=== PATIENT | female | born 1970 | race African-American/Black ===

== ENCOUNTER 2017-11-13 12:04 | Emergency (ER) | payer OTHER ==
[2017-11-13] MEDS: AMOXICILLIN/CLAV 500 MG TAB PO (15:00)
== END 2017-11-13 15:40 | disposition home or self-care (01) ==
LOC: FTE 12:04
DX: L03.012 Cellulitis of left finger (principal)
CPT/HCPCS: 82962; 99283

== ENCOUNTER 2017-12-29 17:31 | Emergency (ER) | payer OTHER ==
[2017-12-29] MEDS: ONDANSETRON (ODT) 4 MG TAB ODT (18:18)
== END 2017-12-29 18:19 | disposition left against medical advice (07) ==
LOC: E/R 17:31
DX: F10.920 Alcohol use, unspecified with intoxication, uncomplicated (principal)
CPT/HCPCS: 82962; 99282

== ENCOUNTER 2018-02-01 11:51 | Emergency (ER) | payer OTHER ==
[2018-02-01] MEDS: LACTATED RINGER'S 1,000 ML IV (12:12)
[2018-02-01] MEDS: ONDANSETRON 4 MG INJ IV ×2 (12:12→13:10)
[2018-02-01] MEDS: FAMOTIDINE 20 MG INJ IV (12:12)
[2018-02-01 12:18] LABS: ADD MAN DIFF? NO
[2018-02-01 12:20] LABS: BASOPHILS % 0.1 % (0.0-2.0); HEMATOCRIT 34.8 % (37.0-47.0); HEMOGLOBIN 11.5 g/dl (12.0-16.0); LYMPHOCYTES # 1.1 10^3/ul (0.8-2.9); LYMPHOCYTES % 13.4 % (15.0-51.0); MEAN CORPUSCULAR HEMOGLOBIN 28.5 pg (29.0-33.0); MEAN CORPUSCULAR VOLUME 86.4 fl (82.0-101.0); MEAN PLATELET VOLUME 10.5 fl (7.4-10.4); MONOCYTE # 0.4 10^3/ul (0.3-0.9); MONOCYTES % 5.1 % (0.0-11.0); NEUTROPHIL # 6.8 10^3/ul (1.6-7.5); NEUTROPHILS % 80.5 % (39.0-77.0); PLATELET COUNT 179 10^3/UL (140-415); RED BLOOD COUNT 4.03 10^6/ul (4.20-5.40); RED CELL DISTRIBUTION WIDTH 14.8 % (11.5-14.5)
[2018-02-01 12:20] LABS: WHITE BLOOD COUNT 8.5 10^3/ul (4.8-10.8)
[2018-02-01] MEDS: PRENATAL VITAMIN PO (12:38)
[2018-02-01] MEDS: IBUPROFEN 800 MG TAB PO (12:38)
[2018-02-01 12:43] LABS: ALANINE AMINOTRANSFERASE 39 IU/L (13-69); ALBUMIN 4.7 g/dl (3.3-4.9); ALBUMIN/GLOBULIN RATIO 1.42; ALKALINE PHOSPHATASE 73 IU/L (42-121); ANION GAP 33 (8-16); ASPARTATE AMINO TRANSFERASE 70 IU/L (15-46); BILIRUBIN,INDIRECT 0.5 mg/dl (0-1.1); BILIRUBIN,TOTAL 0.5 mg/dl (0.2-1.3); BLOOD UREA NITROGEN 19 mg/dl (7-20); CALCIUM 8.3 mg/dl (8.4-10.2); CARBON DIOXIDE 14 mmol/L (21-31); CHLORIDE 100 mmol/L (97-110); CREATININE 1.13 mg/dl (0.44-1.00); GLUCOSE 89 mg/dl (70-220); LIPASE 223 U/L (23-300); POTASSIUM 4.1 mmol/L (3.5-5.1); SODIUM 143 mmol/L (135-144)
[2018-02-01 13:15] LABS: ADD UMIC YES; UR ASCORBIC ACID NEGATIVE (NEGATIVE); UR BACTERIA FEW /HPF (NONE SEEN); UR BILIRUBIN (Dip) NEGATIVE (NEGATIVE); UR BLOOD (Dip) 1+ mg/dL (NEGATIVE); UR CLARITY CLEAR (CLEAR); UR COLOR YELLOW (YELLOW); UR GLUCOSE (Dip) NEGATIVE (NEGATIVE); UR KETONES (Dip) 2+ mg/dL (NEGATIVE); UR LEUKOCYTE ESTERASE (Dip) NEGATIVE Leu/ul (NEGATIVE); UR NITRITE (Dip) NEGATIVE (NEGATIVE); UR RBC 0 /HPF (0-5); UR SPECIFIC GRAVITY (Dip) 1.012 (1.003-1.030); UR TOTAL PROTEIN (Dip) NEGATIVE (NEGATIVE); UR UROBILINOGEN (Dip) NEGATIVE (NEGATIVE); UR WBC 0 /HPF (0-5)
== END 2018-02-01 13:45 | disposition home or self-care (01) ==
LOC: E/R 11:51
DX: F10.20 Alcohol dependence, uncomplicated (principal); R11.2 Nausea with vomiting, unspecified
CPT/HCPCS: 36415; 80053; 81001; 83690; 85025; 96374; 96375; 96376; 99284-25

== ENCOUNTER 2018-02-18 16:09 | Emergency (ER) | payer OTHER | END 2018-02-18 16:54 | disposition home or self-care (01) | LOC: E/R 16:09 | DX: F10.920 Alcohol use, unspecified with intoxication, uncomplicated (principal); I10 Essential (primary) hypertension | CPT/HCPCS: 99283; Z7502 ==

== ENCOUNTER 2018-03-13 07:45 | Emergency (ER) | payer OTHER ==
[2018-03-13] MEDS: SOD CHLORIDE 0.9% 1,000 ML IV (08:11)
[2018-03-13] MEDS: FAMOTIDINE 20 MG TAB PO (08:12)
[2018-03-13] MEDS: ONDANSETRON 4 MG INJ IV (08:12)
[2018-03-13] MEDS: LIDOCAINE/MYLANTA 40 ML BTL PO (08:12)
[2018-03-13 08:22] LABS: ADD MAN DIFF? NO
[2018-03-13 08:24] LABS: WHITE BLOOD COUNT 3.4 10^3/ul (4.8-10.8)
[2018-03-13 08:24] LABS: ABNORMAL IP MESSAGE 1; BASOPHILS % 1.2 % (0.0-2.0); EOSINOPHILS # 0.1 10^3/ul (0.0-0.5); EOSINOPHILS % 3.6 % (0.0-7.0); HEMATOCRIT 35.3 % (37.0-47.0); HEMOGLOBIN 12.1 g/dl (12.0-16.0); LYMPHOCYTES # 1.9 10^3/ul (0.8-2.9); LYMPHOCYTES % 55.1 % (15.0-51.0); MEAN CORPUSCULAR HEMOGLOBIN 28.5 pg (29.0-33.0); MEAN CORPUSCULAR HGB CONC 34.3 g/dl (32.0-37.0); MEAN CORPUSCULAR VOLUME 83.3 fl (82.0-101.0); MEAN PLATELET VOLUME 10.8 fl (7.4-10.4); MONOCYTE # 0.4 10^3/ul (0.3-0.9); MONOCYTES % 12.2 % (0.0-11.0); NEUTROPHIL # 0.9 10^3/ul (1.6-7.5); NEUTROPHILS % 27.6 % (39.0-77.0); PLATELET COUNT 189 10^3/UL (140-415); RED BLOOD COUNT 4.24 10^6/ul (4.20-5.40)
[2018-03-13 08:26] LABS: POSITIVE DIFF @See below
[2018-03-13 08:45] LABS: ALANINE AMINOTRANSFERASE 50 IU/L (13-69); ALBUMIN 5.1 g/dl (3.3-4.9); ALBUMIN/GLOBULIN RATIO 1.64; ALKALINE PHOSPHATASE 77 IU/L (42-121); ANION GAP 27 (8-16); ASPARTATE AMINO TRANSFERASE 76 IU/L (15-46); BILIRUBIN,INDIRECT 0.9 mg/dl (0-1.1); BILIRUBIN,TOTAL 0.9 mg/dl (0.2-1.3); BLOOD UREA NITROGEN 9 mg/dl (7-20); CALCIUM 9.6 mg/dl (8.4-10.2); CARBON DIOXIDE 21 mmol/L (21-31); CHLORIDE 98 mmol/L (97-110); CREATININE 0.75 mg/dl (0.44-1.00); GLUCOSE 79 mg/dl (70-220); POTASSIUM 3.8 mmol/L (3.5-5.1); SODIUM 142 mmol/L (135-144); TOTAL PROTEIN 8.2 g/dl (6.1-8.1)
[2018-03-13 08:49] LABS: ACETAMINOPHEN < 10.0 ug/ml (10.0-30.0); SALICYLATE < 1.0 mg/dl (5.0-30.0)
[2018-03-13 08:50] LABS: INR 0.88; PT RATIO 0.9
[2018-03-13 09:03] LABS: LIPASE 113 U/L (23-300)
[2018-03-13 09:45] LABS: ADD UMIC NO; UR ASCORBIC ACID NEGATIVE (NEGATIVE); UR BACTERIA FEW /HPF (NONE SEEN); UR BILIRUBIN (Dip) NEGATIVE (NEGATIVE); UR BLOOD (Dip) NEGATIVE (NEGATIVE); UR CLARITY SLIGHTLY CLOUDY (CLEAR); UR COLOR YELLOW (YELLOW); UR GLUCOSE (Dip) NEGATIVE (NEGATIVE); UR KETONES (Dip) TRACE mg/dL (NEGATIVE); UR LEUKOCYTE ESTERASE (Dip) NEGATIVE Leu/ul (NEGATIVE); UR NITRITE (Dip) NEGATIVE (NEGATIVE); UR RBC 1 /HPF (0-5); UR SPECIFIC GRAVITY (Dip) 1.011 (1.003-1.030); UR SQUAMOUS EPITHELIAL CELL FEW /HPF (FEW); UR TOTAL PROTEIN (Dip) NEGATIVE (NEGATIVE); UR UROBILINOGEN (Dip) 1+ mg/dL (NEGATIVE); UR WBC 1 /HPF (0-5)
[2018-03-13] MEDS: METOCLOPRAMIDE 10 MG INJ IV (09:56)
[2018-03-13] MEDS: DIPHENHYDRAMINE 50 MG INJ IV ×2 (09:56→15:16)
[2018-03-13 10:48] LABS: AMPHETAMINE/METHAMPHETAMINE Negative (NEGATIVE); BARBITURATES Negative (NEGATIVE); BENZODIAZEPINES Negative (NEGATIVE); CANNABINOIDS Positive (NEGATIVE); COCAINE Negative (NEGATIVE); OPIATES Negative (NEGATIVE)
[2018-03-13] MEDS: LABETALOL HCL 20MG INJ IV (15:16)
[2018-03-14] MEDS: DIPHENHYDRAMINE 50 MG CAP PO (03:15)
[2018-03-14] MEDS: DOCUSATE SODIUM 100 MG CAP PO (14:05)
[2018-03-14] MEDS: MAGNESIUM CITRATE 300 ML BTL PO (20:11)
[2018-03-14] MEDS: hydrOXYzine PAMOATE 25 MG CAP PO (20:30)
[2018-03-14] MEDS: HALOPERIDOL 5 MG INJ IM (21:01)
[2018-03-15] MEDS: DIPHENHYDRAMINE 50 MG CAP PO (02:03)
[2018-03-15] MEDS: DIPHENHYDRAMINE 25 MG CAP PO (11:54)
[2018-03-16] MEDS: OLANZAPINE (ODT) 5 MG TAB ODT (11:16)
[2018-03-16] MEDS: CHLORPROMAZINE 25 MG INJ IM (11:30)
[2018-03-16] MEDS: OLANZAPINE 10 MG VIAL IM (15:30)
[2018-03-16] MEDS: DIPHENHYDRAMINE 50 MG CAP PO (18:23)
[2018-03-16] MEDS ORDERED: OLANZAPINE 5 MG TAB PO (21:00)
== END 2018-03-16 19:00 | disposition home or self-care (01) ==
LOC: E/R 03-16 19:00
DX: F10.920 Alcohol use, unspecified with intoxication, uncomplicated (principal); F33.1 Major depressive disorder, recurrent, moderate; E87.2 Acidosis; D72.819 Decreased white blood cell count, unspecified; R45.851 Suicidal ideations; R10.10 Upper abdominal pain, unspecified; I10 Essential (primary) hypertension; R40.2142 Coma scale, eyes open, spontaneous, at arrival to emergency department; R40.2252 Coma scale, best verbal response, oriented, at arrival to emergency department; R40.2362 Coma scale, best motor response, obeys commands, at arrival to emergency department
CPT/HCPCS: 36415; 80053; 80307; 81001; 81003; 81025; 83690; 85025; 85610; 93005; 96372; 96374; 96375; 96376; 99285-25

== ENCOUNTER 2018-06-29 12:18 | Emergency (ER) | payer OTHER | END 2018-06-29 15:30 | disposition home or self-care (01) | LOC: FTE 12:18 | DX: K12.1 Other forms of stomatitis (principal); I10 Essential (primary) hypertension; Z87.891 Personal history of nicotine dependence | CPT/HCPCS: 99282; Z7502 ==

== ENCOUNTER 2018-08-04 12:27 | Emergency (ER) | payer OTHER ==
[2018-08-04 14:15] LABS: ADD MAN DIFF? NO
[2018-08-04 14:18] LABS: WHITE BLOOD COUNT 3.1 10^3/ul (4.8-10.8)
[2018-08-04 14:18] LABS: BASOPHILS % 0.7 % (0.0-2.0); HEMATOCRIT 38.1 % (37.0-47.0); LYMPHOCYTES # 0.8 10^3/ul (0.8-2.9); LYMPHOCYTES % 25.9 % (15.0-51.0); MEAN CORPUSCULAR HEMOGLOBIN 28.8 pg (29.0-33.0); MEAN CORPUSCULAR HGB CONC 34.1 g/dl (32.0-37.0); MEAN CORPUSCULAR VOLUME 84.3 fl (82.0-101.0); MONOCYTE # 0.2 10^3/ul (0.3-0.9); MONOCYTES % 7.9 % (0.0-11.0); NEUTROPHILS % 64.2 % (39.0-77.0); PLATELET COUNT 164 10^3/UL (140-415); RED BLOOD COUNT 4.52 10^6/ul (4.20-5.40)
[2018-08-04 14:23] LABS: POSITIVE DIFF @See below
[2018-08-04] MEDS: SOD CHLORIDE 0.9% 1,000 ML IV (14:24)
[2018-08-04] MEDS: ONDANSETRON 4 MG INJ IV (14:25)
[2018-08-04] MEDS: morphine 4 MG/ML VIAL IV (14:25)
[2018-08-04 14:37] LABS: ANION GAP 26 (5-13); BLOOD UREA NITROGEN 8 mg/dl (7-20); CARBON DIOXIDE 22 mmol/L (21-31); CHLORIDE 88 mmol/L (97-110); GLUCOSE 73 mg/dl (70-220); POTASSIUM 4.4 mmol/L (3.5-5.1); SODIUM 136 mmol/L (135-144)
[2018-08-04 14:38] LABS: ALANINE AMINOTRANSFERASE 73 IU/L (13-69); ALBUMIN 5.7 g/dl (3.3-4.9); ALBUMIN/GLOBULIN RATIO 1.58; ALKALINE PHOSPHATASE 85 IU/L (42-121); ASPARTATE AMINO TRANSFERASE 163 IU/L (15-46); BILIRUBIN,INDIRECT 0.8 mg/dl (0-1.1); BILIRUBIN,TOTAL 0.8 mg/dl (0.2-1.3); CALCIUM 9.8 mg/dl (8.4-10.2); Estimated GFR > 60 mL/min (>60); LIPASE 415 U/L (23-300); TOTAL PROTEIN 9.3 g/dl (6.1-8.1)
[2018-08-04] MEDS: IOHEXOL 300MG/ML 150 ML BTL (16:05)
[2018-08-04] MEDS ORDERED: SOD CHLORIDE 0.9% 100 ML (16:05)
[2018-08-04] MEDS: LACTATED RINGER'S 1,000 ML IV (18:46)
== END 2018-08-04 19:00 | disposition home or self-care (01) ==
LOC: E/R 12:27
DX: R10.13 Epigastric pain (principal); I10 Essential (primary) hypertension; F17.210 Nicotine dependence, cigarettes, uncomplicated; E87.8 Other disorders of electrolyte and fluid balance, not elsewhere classified; E86.0 Dehydration
CPT/HCPCS: 36415; 74177; 80053; 81025; 83690; 85025; 96374; 96375; 99285-25

== ENCOUNTER 2019-01-15 13:42 | Emergency (ER) | payer OTHER ==
[2019-01-15 14:10] LABS: ADD MAN DIFF? NO
[2019-01-15 14:13] LABS: BASOPHILS % 0.5 % (0.0-2.0); EOSINOPHILS # 0.1 10^3/ul (0.0-0.5); EOSINOPHILS % 1.2 % (0.0-7.0); HEMATOCRIT 31.9 % (37.0-47.0); HEMOGLOBIN 10.4 g/dl (12.0-16.0); LYMPHOCYTES # 1.6 10^3/ul (0.8-2.9); LYMPHOCYTES % 28.2 % (15.0-51.0); MEAN CORPUSCULAR HEMOGLOBIN 27.4 pg (29.0-33.0); MEAN CORPUSCULAR HGB CONC 32.6 g/dl (32.0-37.0); MEAN CORPUSCULAR VOLUME 83.9 fl (82.0-101.0); MEAN PLATELET VOLUME 10.3 fl (7.4-10.4); MONOCYTE # 0.6 10^3/ul (0.3-0.9); MONOCYTES % 10.2 % (0.0-11.0); NEUTROPHIL # 3.4 10^3/ul (1.6-7.5); NEUTROPHILS % 59.5 % (39.0-77.0); PLATELET COUNT 206 10^3/UL (140-415); RED CELL DISTRIBUTION WIDTH 15.2 % (11.5-14.5)
[2019-01-15 14:13] LABS: WHITE BLOOD COUNT 5.7 10^3/ul (4.8-10.8)
[2019-01-15] MEDS: OLANZAPINE (ODT) 5 MG TAB ODT (14:24)
[2019-01-15 14:31] LABS: ALANINE AMINOTRANSFERASE 20 IU/L (13-69); ALBUMIN 4.2 g/dl (3.3-4.9); ALBUMIN/GLOBULIN RATIO 1.23; ALKALINE PHOSPHATASE 80 IU/L (42-121); ANION GAP 19 (5-13); ASPARTATE AMINO TRANSFERASE 40 IU/L (15-46); BILIRUBIN,INDIRECT 1.2 mg/dl (0-1.1); BILIRUBIN,TOTAL 1.2 mg/dl (0.2-1.3); BLOOD UREA NITROGEN 14 mg/dl (7-20); CARBON DIOXIDE 21 mmol/L (21-31); CHLORIDE 104 mmol/L (97-110); CREATININE 0.81 mg/dl (0.44-1.00); Estimated GFR > 60 mL/min (>60); GLUCOSE 63 mg/dl (70-220); POTASSIUM 3.9 mmol/L (3.5-5.1); SODIUM 144 mmol/L (135-144); TOTAL PROTEIN 7.6 g/dl (6.1-8.1)
[2019-01-15 14:43] LABS: SALICYLATE < 1.0 mg/dl (5.0-30.0)
[2019-01-15 18:28] LABS: ADD UMIC NO; UR ASCORBIC ACID NEGATIVE (NEGATIVE); UR BACTERIA FEW /HPF (NONE SEEN); UR BILIRUBIN (Dip) NEGATIVE (NEGATIVE); UR BLOOD (Dip) NEGATIVE (NEGATIVE); UR CLARITY SLIGHTLY CLOUDY (CLEAR); UR COLOR YELLOW (YELLOW); UR GLUCOSE (Dip) NEGATIVE (NEGATIVE); UR KETONES (Dip) NEGATIVE (NEGATIVE); UR LEUKOCYTE ESTERASE (Dip) NEGATIVE Leu/ul (NEGATIVE); UR NITRITE (Dip) NEGATIVE (NEGATIVE); UR RBC 1 /HPF (0-5); UR SPECIFIC GRAVITY (Dip) 1.016 (1.003-1.030); UR SQUAMOUS EPITHELIAL CELL FEW /HPF (FEW); UR TOTAL PROTEIN (Dip) NEGATIVE (NEGATIVE); UR UROBILINOGEN (Dip) NEGATIVE (NEGATIVE); UR WBC 1 /HPF (0-5)
[2019-01-15 19:00] LABS: AMPHETAMINE/METHAMPHETAMINE Negative (NEGATIVE); BARBITURATES Negative (NEGATIVE); BENZODIAZEPINES Negative (NEGATIVE); CANNABINOIDS Negative (NEGATIVE); COCAINE Negative (NEGATIVE); OPIATES Negative (NEGATIVE)
[2019-01-15] MEDS: ACETAMINOPHEN 500 MG TAB PO (21:30)
== END 2019-01-16 09:08 ==
LOC: E/R 01-16 09:08
DX: F10.920 Alcohol use, unspecified with intoxication, uncomplicated (principal); I10 Essential (primary) hypertension; Z87.891 Personal history of nicotine dependence
CPT/HCPCS: 36415; 80053; 80307; 81001; 81003; 81025; 85025; 99285-25

== ENCOUNTER → 2019-05-07 | Emergency (ER) | payer OTHER ==
[2019-05-07] MEDS: ONDANSETRON (ODT) 4 MG TAB ODT (14:28)
[2019-05-07] MEDS: HYDROCODONE/APAP (10/325) TAB PO (14:28)
== END | disposition home or self-care (01) ==
LOC: E/R 13:45
DX: R11.2 Nausea with vomiting, unspecified (principal); I10 Essential (primary) hypertension; F17.210 Nicotine dependence, cigarettes, uncomplicated; R10.13 Epigastric pain
CPT/HCPCS: 99283; Z7502